=== PATIENT | female | born 1985 | race African-American/Black ===

== ENCOUNTER 2017-01-03 17:06 | Emergency (ER) | payer MEDICAID ==
[~2017-01-03] VITALS: Ht 167.6 cm; Wt 77.1 kg
[~2017-01-03 17:06] MED LIST: PHENERGAN
[2017-01-03 18:20] VITALS: BP 124/76
[2017-01-03] MEDS ORDERED: HYDROcodone-ACET 5/325MG TAB PO ONE (18:45)
== END 2017-01-03 19:18 | disposition home or self-care (01) ==
LOC: EDBD 17:06 → ER 17:06
DX: S82.832A Other fracture of upper and lower end of left fibula, initial encounter for closed fracture (principal); G35 Multiple sclerosis; Z79.899 Other long term (current) drug therapy; W18.39XA Other fall on same level, initial encounter; Y93.89 Activity, other specified; Y92.89 Other specified places as the place of occurrence of the external cause; Y99.8 Other external cause status
CPT/HCPCS: 73610